=== PATIENT | female | born 1995 | race Caucasian/White ===

== ENCOUNTER → 2020-11-04 | Outpatient (CLI) | payer OTHER ==
--- NOTE | 2020-11-06 07:17 | MRI ---
Study: MRI of the Left Knee. Indication: LT KNEE PAIN Technique: Multiplanar, multi sequence MRI of the left knee was obtained without intravenous contrast. Comparison: None. Findings: Sequela of acute patellar dislocation-relocation event with prominent contusions inferomedial patella and lateral margin lateral femoral condyle. Trace lateral patellar tilt and subluxation at this time. TT-TG distance measures 16 mm. Partial thickness tearing femoral attachment medial retinaculum. Grade 1 MCL sprain with minimal surrounding edema. Very subtle grade 2/3 chondrosis of the medial most margin of the medial patellar facet. Low-grade tendinosis quadriceps tendon insertion. ACL, PCL, lateral collateral ligament complex intact. Medial meniscus and lateral meniscus intact. No high-grade chondral defect medial or lateral knee compartment. Small knee effusion. Impression: Sequela of acute patellar dislocation relocation event with contusions inferomedial patella and lateral margin lateral femoral condyle. Partial thickness tearing femoral attachment medial retinaculum with grade 1 MCL sprain. Subtle grade 2 chondrosis medial patellar facet. Small knee effusion. 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
== END ==
LOC: MRI 14:06
PROVIDERS: ATTEND Family Medicine
DX: S83.412A Sprain of medial collateral ligament of left knee, initial encounter (principal); S83.002S Unspecified subluxation of left patella, sequela; M25.462 Effusion, left knee; M22.42 Chondromalacia patellae, left knee